=== PATIENT | male | born 1965 | race Caucasian/White ===

== ENCOUNTER 2021-03-18 18:47 | Inpatient (IN) | payer OTHER ==
[2021-03-18] MEDS ORDERED: ACETAMINOPHEN 500 MG TABLET (FP) PO ONE (19:03)
[2021-03-18] MEDS ORDERED: ACETAMINOPHEN 500 MG TABLET (FP) ONE (19:04)
[2021-03-18] MEDS ORDERED: ACETAMINOPHEN INJECTION 100 ML IVPB ONE (20:57)
[2021-03-18] MEDS ORDERED: SODIUM CHLORIDE IV ONE (21:06)
[2021-03-18] MEDS ORDERED: ACETAMINOPHEN 1000 MG/100 ML VIAL (NON FORMULARY) IVPB ONE (21:27)
[2021-03-18 21:39] LABS: BASO % 0.3 % (0-2.0); HEMATOCRIT 42.2 % (35.4-49); HEMOGLOBIN 14.4 GM/dL (11.7-16.9); LYMPH % 5.2 % (8-40); MCH 31.9 pg (25.7-33.7); MCHC 34.2 g/dl (32.0-35.9); MEAN CELL VOLUME 93.3 fl (80-96); MEAN PLT VOLUME 7.7 fl (7.5-11.1); MONO % 8.2 % (3.8-10.2); NEUT % 86.3 % (42.8-82.8); PLATELET COUNT 76 10^3/uL (134-434); RBC 4.53 M/mm3 (4.00-5.60); RDW 14.3 % (11.9-15.9); WHITE BLOOD COUNT 11.3 K/mm3 (4.0-10.0)
[2021-03-18 21:48] LABS: INR 1.23 (0.83-1.09); PROTHROMBIN TIME (PATIENT) 14.8 SEC (9.7-13.0)
[2021-03-18 21:51] LABS: ACTIVATED PTT 29.3 SECONDS (25.2-36.5)
[2021-03-18 22:05] LABS: CHLORIDE 103 mmol/L (98-107); SODIUM 137 mmol/L (136-145)
[2021-03-18 22:07] LABS: CALCIUM 8.5 mg/dL (8.5-10.1)
[2021-03-18 22:08] LABS: ALBUMIN 3.6 g/dl (3.4-5.0); ANION GAP 10 MMOL/L (8-16); CO2 24 mmol/L (21-32); GLUCOSE,RANDOM 133 mg/dL (74-106)
[2021-03-18 22:11] LABS: CREATININE 1.4 mg/dL (0.55-1.3)
[2021-03-18 22:12] LABS: BILIRUBIN,TOTAL 1.8 mg/dL (0.2-1)
[2021-03-18 22:13] LABS: TOT PROT 7.5 g/dl (6.4-8.2)
[2021-03-18 22:14] LABS: ALK PHOS 138 U/L (45-117)
[2021-03-18 22:27] LABS: LACTIC ACID 2.2 mmol/L (0.4-2.0); SGOT/AST 3418 U/L (15-37); SGPT/ALT 2445 U/L (13-61)
[2021-03-19 02:52] LABS: PH,URINE 5.5 (5.0-8.0); URINE APPEARANCE CLEAR; URINE BILIRUBIN NEGATIVE (NEGATIVE); URINE COLOR YELLOW; URINE GLUCOSE (UA) NEGATIVE (NEGATIVE); URINE KETONE NEGATIVE (NEGATIVE); URINE LEUK ESTERASE NEGATIVE (NEGATIVE); URINE NITRITE NEGATIVE (NEGATIVE); URINE PROTEIN NEGATIVE (NEGATIVE)
[2021-03-19 03:56] LABS: LACTIC ACID 2.2 mmol/L (0.4-2.0)
[2021-03-19 06:10] LABS: LIPASE 175 U/L (73-393)
[2021-03-19] MEDS ORDERED: VANCOMYCIN 1 GM in D5W (PRE-DOCKED) 1,000 MG/250 ML IVPB ONE (06:22)
[2021-03-19] MEDS ORDERED: CEFEPIME HCL/D5W 2 GM/50 ML BAG IVPB ONE (06:23)
[2021-03-19 06:39] LABS: BASO % 0.2 % (0-2.0); EOS % 0.1 % (0-4.5); HEMATOCRIT 39.1 % (35.4-49); HEMOGLOBIN 13.6 GM/dL (11.7-16.9); MCH 32.9 pg (25.7-33.7); MCHC 34.9 g/dl (32.0-35.9); MEAN CELL VOLUME 94.2 fl (80-96); MEAN PLT VOLUME 8.3 fl (7.5-11.1); MONO % 7.4 % (3.8-10.2); NEUT % 83.3 % (42.8-82.8); PLATELET COUNT 66 10^3/uL (134-434); RBC 4.15 M/mm3 (4.00-5.60); RDW 13.9 % (11.9-15.9)
[2021-03-19 06:59] LABS: CALCIUM 8.1 mg/dL (8.5-10.1)
[2021-03-19 07:00] LABS: ALBUMIN 3.3 g/dl (3.4-5.0); BLOOD UREA NITROGEN 13.2 mg/dL (7-18)
[2021-03-19 07:03] LABS: CREATININE 1.1 mg/dL (0.55-1.3)
[2021-03-19 07:04] LABS: BILIRUBIN,TOTAL 2.4 mg/dL (0.2-1)
[2021-03-19 07:05] LABS: TOT PROT 6.8 g/dl (6.4-8.2)
[2021-03-19] MEDS: DEXTROSE 5%-NORMAL SALINE 1,000 ML IV SCH ×2 (07:24→21:22)
[2021-03-19] MEDS ORDERED: VANCOMYCIN 1 GRAM (PRE-DOCKED) 1,000 MG/250 ML BAG IVPB ONE (07:35)
[2021-03-19] MEDS ORDERED: ACETAMINOPHEN 1000 MG/100 ML VIAL (NON FORMULARY) IVPB PRN (09:37)
[2021-03-19 12:10] VITALS: BMI 28.2
[2021-03-19] MEDS ORDERED: DEXTROSE 5%-WATER - 50 ML IVPB ONE (14:50)
[2021-03-19] MEDS ORDERED: PIPERACILLIN/TAZOBACTAM 3.375 GM VIAL IVPB ONE (14:50)
[2021-03-19] MEDS: PIPERACILLIN/TAZOB 3.375 GM 3.375 GM in DEXTROSE 5%-WATER - 50 ML IVPB SCH ×2 (14:54→17:08)
[2021-03-20] MEDS ORDERED: PIPERACILLIN/TAZOBACTAM 3.375 GM VIAL IVPB ONE ×3 (01:44→18:06)
[2021-03-20] MEDS ORDERED: DEXTROSE 5%-WATER - 50 ML IVPB ONE ×3 (01:45→18:06)
[2021-03-20] MEDS: PIPERACILLIN/TAZOB 3.375 GM 3.375 GM in DEXTROSE 5%-WATER - 50 ML IVPB SCH ×3 (01:48→18:07)
[2021-03-20] MEDS: DEXTROSE 5%-NORMAL SALINE 1,000 ML IV SCH ×3 (03:31→23:00)
[2021-03-20 08:56] LABS: BASO % 0.3 % (0-2.0); EOS % 0.2 % (0-4.5); HEMOGLOBIN 12.8 GM/dL (11.7-16.9); LYMPH % 14.8 % (8-40); MCH 32.9 pg (25.7-33.7); MCHC 34.6 g/dl (32.0-35.9); MEAN PLT VOLUME 8.5 fl (7.5-11.1); MONO % 9.6 % (3.8-10.2); NEUT % 75.1 % (42.8-82.8); PLATELET COUNT 77 10^3/uL (134-434); RDW 13.7 % (11.9-15.9); WHITE BLOOD COUNT 8.6 K/mm3 (4.0-10.0)
[2021-03-20 09:28] LABS: CALCIUM 7.9 mg/dL (8.5-10.1)
[2021-03-20 09:29] LABS: ALBUMIN 2.8 g/dl (3.4-5.0); BLOOD UREA NITROGEN 11.1 mg/dL (7-18)
[2021-03-20 09:32] LABS: CREATININE 1.1 mg/dL (0.55-1.3)
[2021-03-20 09:33] LABS: BILIRUBIN,TOTAL 1.7 mg/dL (0.2-1); TOT PROT 6.3 g/dl (6.4-8.2)
[2021-03-20 14:10] LABS: HEP B CORE AB, TOT Positive (Negative)
[2021-03-21] MEDS ORDERED: DEXTROSE 5%-WATER - 50 ML IVPB ONE ×3 (01:24→18:04)
[2021-03-21] MEDS ORDERED: PIPERACILLIN/TAZOBACTAM 3.375 GM VIAL IVPB ONE ×3 (01:24→18:04)
[2021-03-21] MEDS: PIPERACILLIN/TAZOB 3.375 GM 3.375 GM in DEXTROSE 5%-WATER - 50 ML IVPB SCH ×3 (01:36→18:07)
[2021-03-21] MEDS: IBUPROFEN 200 MG TABLET PO PRN (04:08)
[2021-03-21] MEDS ORDERED: PT OWN MED DRAWER 7, Y5N ONE (05:49)
[2021-03-21 07:46] LABS: BASO % 0.4 % (0-2.0); EOS % 0.4 % (0-4.5); HEMATOCRIT 34.4 % (35.4-49); HEMOGLOBIN 12.1 GM/dL (11.7-16.9); LYMPH % 17.2 % (8-40); MCH 32.9 pg (25.7-33.7); MCHC 35.3 g/dl (32.0-35.9); MEAN CELL VOLUME 93.4 fl (80-96); MEAN PLT VOLUME 8.2 fl (7.5-11.1); MONO % 11.7 % (3.8-10.2); NEUT % 70.3 % (42.8-82.8); PLATELET COUNT 89 10^3/uL (134-434); RBC 3.69 M/mm3 (4.00-5.60); RDW 13.4 % (11.9-15.9); WHITE BLOOD COUNT 7.4 K/mm3 (4.0-10.0)
[2021-03-21] MEDS: DEXTROSE 5%-NORMAL SALINE 1,000 ML IV SCH (07:50)
[2021-03-21 08:16] LABS: CALCIUM 7.6 mg/dL (8.5-10.1)
[2021-03-21 08:17] LABS: BLOOD UREA NITROGEN 10.5 mg/dL (7-18)
[2021-03-21 08:20] LABS: CREATININE 1.1 mg/dL (0.55-1.3)
[2021-03-21 11:08] LABS: CARCINOEMBRYONIC ANTIGEN 4.8 ng/mL (0.0-4.7)
[2021-03-22] MEDS ORDERED: PIPERACILLIN/TAZOBACTAM 3.375 GM VIAL IVPB ONE ×3 (01:13→17:32)
[2021-03-22] MEDS ORDERED: DEXTROSE 5%-WATER - 50 ML IVPB ONE ×3 (01:14→17:32)
[2021-03-22] MEDS: PIPERACILLIN/TAZOB 3.375 GM 3.375 GM in DEXTROSE 5%-WATER - 50 ML IVPB SCH ×3 (01:37→17:50)
[2021-03-22] MEDS: DEXTROSE 5%-NORMAL SALINE 1,000 ML IV SCH ×3 (03:41→23:22)
[2021-03-22 08:46] LABS: BASO % 0.8 % (0-2.0); EOS % 0.5 % (0-4.5); HEMATOCRIT 39.5 % (35.4-49); HEMOGLOBIN 14.2 GM/dL (11.7-16.9); LYMPH % 20.3 % (8-40); MCH 33.9 pg (25.7-33.7); MCHC 35.9 g/dl (32.0-35.9); MEAN CELL VOLUME 94.5 fl (80-96); MONO % 12.1 % (3.8-10.2); NEUT % 66.3 % (42.8-82.8); PLATELET COUNT 161 10^3/uL (134-434); RBC 4.18 M/mm3 (4.00-5.60); RDW 13.4 % (11.9-15.9); WHITE BLOOD COUNT 8.8 K/mm3 (4.0-10.0)
[2021-03-22 08:53] LABS: INR 1.18 (0.83-1.09); PROTHROMBIN TIME (PATIENT) 14.2 SEC (9.7-13.0)
[2021-03-22 08:55] LABS: ACTIVATED PTT 29.9 SECONDS (25.2-36.5)
[2021-03-22 09:17] LABS: CALCIUM 8.4 mg/dL (8.5-10.1)
[2021-03-22 09:18] LABS: ALBUMIN 3.3 g/dl (3.4-5.0); BLOOD UREA NITROGEN 10.3 mg/dL (7-18)
[2021-03-22 09:19] LABS: MAGNESIUM 2.2 mg/dL (1.8-2.4)
[2021-03-22 09:21] LABS: CREATININE 1.3 mg/dL (0.55-1.3)
[2021-03-22 09:22] LABS: BILIRUBIN,TOTAL 1.7 mg/dL (0.2-1); TOT PROT 7.9 g/dl (6.4-8.2)
[2021-03-22] MEDS: MAGNESIUM OXIDE 400 MG TABLET (FP) PO SCH (21:11)
[2021-03-23] MEDS ORDERED: DEXTROSE 5%-WATER - 50 ML IVPB ONE ×3 (01:05→18:38)
[2021-03-23] MEDS ORDERED: PIPERACILLIN/TAZOBACTAM 3.375 GM VIAL IVPB ONE ×3 (01:05→18:38)
[2021-03-23] MEDS: PIPERACILLIN/TAZOB 3.375 GM 3.375 GM in DEXTROSE 5%-WATER - 50 ML IVPB SCH ×3 (01:30→18:39)
[2021-03-23] MEDS ORDERED: PT OWN MED DRAWER 7, Y5N ONE ×2 (02:41→02:49)
[2021-03-23] MEDS: IBUPROFEN 200 MG TABLET PO PRN (02:43)
[2021-03-23] MEDS: DEXTROSE 5%-NORMAL SALINE 1,000 ML IV SCH ×2 (09:02→22:51)
[2021-03-23] MEDS: MAGNESIUM OXIDE 400 MG TABLET (FP) PO SCH ×2 (09:03→21:38)
[2021-03-23] MEDS: IBUPROFEN 400 MG TABLET (FP) PO PRN (22:09)
[2021-03-24] MEDS ORDERED: DEXTROSE 5%-WATER - 50 ML IVPB ONE ×2 (00:54→10:20)
[2021-03-24] MEDS ORDERED: PIPERACILLIN/TAZOBACTAM 3.375 GM VIAL IVPB ONE ×2 (00:54→10:19)
[2021-03-24] MEDS: PIPERACILLIN/TAZOB 3.375 GM 3.375 GM in DEXTROSE 5%-WATER - 50 ML IVPB SCH ×2 (01:08→11:30)
[2021-03-24 10:07] LABS: ALBUMIN 2.7 g/dl (3.4-5.0)
[2021-03-24 10:14] LABS: BLOOD UREA NITROGEN 8.9 mg/dL (7-18)
[2021-03-24 10:18] LABS: CREATININE 1.1 mg/dL (0.55-1.3)
[2021-03-24 10:19] LABS: BILIRUBIN,TOTAL 0.9 mg/dL (0.2-1)
[2021-03-24 10:23] LABS: TOT PROT 6.2 g/dl (6.4-8.2)
[2021-03-24] MEDS: MAGNESIUM OXIDE 400 MG TABLET (FP) PO SCH (11:30)
[2021-03-24 15:22] VITALS: BP 140/89; PULSE 66; TEMP 98.4
[2021-03-24] MEDS: IBUPROFEN 400 MG TABLET (FP) PO PRN (18:47)
== END 2021-03-24 19:03 | disposition home or self-care (01) | DRG 720 ==
LOC: JER 18:47 → JERBED 03-19 03:50 → J6S 03-19 08:48
PROVIDERS: ADMIT Internal Medicine; ATTEND Family Medicine
DX: A41.9 Sepsis, unspecified organism (principal); N50.819 Testicular pain, unspecified; R74.8 Abnormal levels of other serum enzymes; R50.9 Fever, unspecified; D37.6 Neoplasm of uncertain behavior of liver, gallbladder and bile ducts; R10.9 Unspecified abdominal pain; D69.6 Thrombocytopenia, unspecified; F10.10 Alcohol abuse, uncomplicated; E87.2 Acidosis; R74.01 Elevation of levels of liver transaminase levels; D72.829 Elevated white blood cell count, unspecified
CPT/HCPCS: 36415; 71045-TC-FY; 71250-TC; 74177-TC; 76705-TC; 76870-TC; 80048; 80053; 81003; 82105; 82140; 82378; 82550; 82607; 82747; 83605; 83615; 83690; 83735; 84443; 84450; 84460; 84484; 85014; 85025; 85610; 85730; 86301; 86704; 86706; 86707; 86708; 86709; 87040; 87086; 87340; 87491; 87591; 93005; 93010; 99285-25; C9803; J0131; Q9967; U0003; U0005